=== PATIENT | male | born 1945 | race Caucasian/White ===

== ENCOUNTER 2016-12-26 19:31 | Inpatient (IN) | payer MEDICARE ==
[2016-12-26] MEDS ORDERED: PANTOPRAZOLE 40 MG/10 ML VIAL IVP STA (20:04)
[2016-12-26] MEDS ORDERED: OCTREOTIDE 100 MCG/ML INJ IVP STA (20:04)
[2016-12-26] MEDS ORDERED: OCTREOTIDE 200 MCG in SODIUM CHLORIDE 0.9% 100 ML IV STA (20:10)
[2016-12-26 20:33] LABS: Basophils # (A) 0.1 k/uL (0-0.2); Basophils % (A) 1 %; CH 34.9; CHCM 34.2; Eosinophils % (A) 0 %; HCT 33.3 % (39.0-53.0); HDW 1.97; HGB 11.5 gm/dL (13.0-17.5); Luc # (Auto) 0.29; Luc % (Auto) 3; Lymphocytes # (A) 0.7 k/uL (1.0-4.8); Lymphocytes % (A) 7 %; MCH 35.5 pg (25.0-35.0); MCHC 34.6 g/dL (31.0-37.0); MCV 102.5 fL (80.0-100.0); Macrocytosis Slight; Mean Platelet Volume 8.5; Monocytes % (A) 10 %; Neutrophils # (A) 7.9 k/uL (1.3-7.7); Neutrophils % (A) 80 %; RBC 3.25 m/uL (4.30-5.90); RDW 15.6 % (11.5-15.5); WBC 9.9 k/uL (3.8-10.6)
[2016-12-26 21:12] LABS: Manual Review Performed; Target Cells Present
[2016-12-26] MEDS ORDERED: MORPHINE SULFATE 4 MG/ML SYRINGE IV PRN (22:22)
[2016-12-26] MEDS ORDERED: NALOXONE 0.4 MG/ML 1 ML VIAL IV PRN (22:22)
[2016-12-26] MEDS ORDERED: ONDANSETRON 4 MG/2 ML VIAL IVP PRN (22:22)
--- NOTE | 2016-12-26 22:22 | ED ---
GI Bleed HPI - General Chief complaint: GI Bleed Stated complaint: GI Bleed Time Seen by Provider: 12/26/16 19:57 Source: EMS Mode of arrival: EMS Limitations: no limitations - History of Present Illness Initial comments: This 71-year-old white male presents with a complaint of some GI bleeding as well as some ascites and abdominal pain. He is being transferred to our facility from [facility]. He apparently states that he's had increasing abdominal girth and firmness as well as some discomfort. He had some right blood per rectum which started last night. He has generalized fatigue. He has chronic alcoholism and presents to their facility intoxicated. He states that he had one beer prior to arrival to their facility today. He complains of some nausea but no vomiting. He presents jaundiced with scleral icterus. He apparently was seen at their facility on 12/16/2016 related to some falls but refused any admission at that time. He does relate that he has a previous history of ascites but states that the last time he obtained a paracentesis was approximately 3 years ago. He has been seen by Dr. Powell in the past for some intestinal problems. He apparently had some type of tumor removed from his intestine and had a colostomy with reversal. He denies any other complaints or other modifying factors. - Related Data Home Medications Medication Instructions Recorded Confirmed Aspirin 325 mg PO DAILY 12/26/16 12/26/16 Multivitamins, Thera [Multivitamin 1 tab PO DAILY 12/26/16 12/26/16 (formulary)] Previous Rx's Medication Instructions Recorded Potassium Chloride ER [K-Dur 20] 20 meq PO BID #120 tab.er.prt 12/28/14 Allergies Allergy/AdvReac Type Severity Reaction Status Date / Time No Known Allergies Allergy Verified 12/26/16 20:50 Review of Systems ROS Statement: Those systems with pertinent positive or pertinent negative responses have been documented in the HPI. ROS Other: All systems not noted in ROS Statement are negative. Past Medical History Past Medical History: Cancer, Liver Disease Additional Past Medical History / Comment(s): HX SKIN CA ON NOSE, CURRENT RECTAL MASS, CIRRHOSIS, JAUNDICE, ESOPHAGEAL VARICIES, ASCITES History of Any Multi-Drug Resistant Organisms: None Reported Past Surgical History: No Surgical Hx Reported Additional Past Surgical History / Comment(s): PARACENTESIS, COLONOSCOPY, EGD Past Anesthesia/Blood Transfusion Reactions: No Reported Reaction Past Psychological History: Anxiety Smoking Status: Former smoker Past Alcohol Use History: Heavy Past Drug Use History: None Reported - Past Family History Father Family Medical History: Myocardial Infarction ([place]) Mother Family Medical History: Diabetes Mellitus Brother(s) Family Medical History: Liver Disease Additional Family Medical History / Comment(s): CIRROSIS General Exam - General Exam Comments Initial Comments: GENERAL: The patient is well nourished and well hydrated. VITAL SIGNS: Heart rate, blood pressure, respiratory rate reviewed as recorded in nurse's notes. EYES: Pupils are round and reactive. Extraocular movements are intact. No conjunctival / lid redness or swelling. Icterus is noted. ENT: No external evidence of injury, swelling, or ecchymosis. Airway is patent. Throat is clear. NECK: Nontender. No swelling or evidence of injury. No subcutaneous emphysema. Trachea is midline. No thyroid mass. HEART: Tachycardic rhythm is noted. Good peripheral pulses. LUNGS/CHEST: Breath sounds clear and equal bilaterally. No rales, rhonchi, or wheezes. No ecchymosis, subcutaneous emphysema, or tenderness. ABDOMEN: There is severe swelling of the abdomen with mild diffuse tenderness. EXTREMITIES: No extremity tenderness. Normal muscle tone and function. No thoracolumbar tenderness. NEUROLOGIC: Sensation is grossly intact. Cranial nerve exam reveals face is symmetrical, tongue is midline, speech is clear. SKIN: There is some spider hemangiomas noted to the chest region. Jaundice is noted. PSYCHIATRIC: Alert and oriented. Appropriate behavior and judgment. Limitations: no limitations Course Vital Signs 12/26/16 12/26/16 12/26/16 19:34 20:27 20:39 Temperature 97.5 F L 98.5 F Pulse Rate 109 H 103 H Respiratory 17 18 Rate Blood Pressure 132/77 117/77 O2 Sat by Pulse 95 94 L Oximetry 12/26/16 21:00 Temperature 98.5 F Pulse Rate 101 H Respiratory 18 Rate Blood Pressure 123/71 O2 Sat by Pulse 97 Oximetry Medical Decision Making - Medical Decision Making The patient was seen and examined. All diagnostics were reviewed. The patient had a thorough workup at the preceding facility. His laboratory showed multiple abnormalities. The alcohol is elevated at 342, the chloride is low at 95, the alk phos is elevated at 179, the transaminases are elevated, the bilirubin is severely elevated at 18.3, the lactic acid is elevated at 2.4, the hemoglobin is low at 11.9 which is only down approximately one and a half grams since previous hemoglobin last week per transferring records. The PT is elevated at 17.4. The occult blood is positive. The INR was elevated at 2. The hemoglobin is repeated and is stable. EKG from other transferring facility shows a sinus tachycardia at a rate of [address]-T wave changes noted. They completed a computed tomography scan of the abdomen and pelvis at the transferring facility which apparently showed as extreme amount of liver cirrhosis, portal hypertension and esophageal varices. There is significant amount of ascites. There is a possible apple core defect or mass in the mid transverse colon which measures approximately 4 cm. There is a questionable lesion in the small bowel and lumbar and a large gallbladder. There is a questionable lytic lesions versus and osteopenia in the pelvis. The chest x- ray was done at the transferring facility and does not show any acute process. Overall, is felt that the patient is fairly significant illness require admission to the hospital. Case is discussed with Dr. Castillo and he is agreeable to admission. - Lab Data Result diagrams: 12/26/16 20:14 Lab Results 12/26/16 Range/Units 20:14 WBC 9.9 (3.8-10.6) k/uL RBC 3.25 L (4.30-5.90) m/uL Hgb 11.5 L (13.0-17.5) gm/dL Hct 33.3 L (39.0-53.0) % MCV 102.5 H (80.0-100.0) fL MCH 35.5 H (25.0-35.0) pg MCHC 34.6 (31.0-37.0) g/dL RDW 15.6 H (11.5-15.5) % Plt Count 93 L (150-450) k/uL Neutrophils % 80 % Lymphocytes % 7 % Monocytes % 10 % Eosinophils % 0 % Basophils % 1 % Neutrophils # 7.9 H (1.3-7.7) k/uL Lymphocytes # 0.7 L (1.0-4.8) k/uL Monocytes # 1.0 (0-1.0) k/uL Eosinophils # 0.0 (0-0.7) k/uL Basophils # 0.1 (0-0.2) k/uL Manual Slide Review Performed Macrocytosis Slight Target Cells Present Disposition Clinical Impression: GI bleed, Anemia, Alcohol abuse, Alcohol intoxication, Ascites, Coagulopathy, Transaminitis, Jaundice, Icterus, Hepatic failure, Cirrhosis, Colonic mass, Portal hypertension, Esophageal varices Disposition: ADMITTED IP TO THIS [facility] Condition: Poor Referrals: None,Stated [Primary Care Provider] - 1-2 days Time of Disposition: 22:21 Decision Date: 12/26/16 Decision Time: 22:21
[2016-12-26] MEDS ORDERED: LORazepam 2 MG/ML SYRINGE IV PRN ×2 (22:28)
[2016-12-26] MEDS ORDERED: THIAMINE 100 MG/ML 2 ML VIAL IM STA (22:28)
[2016-12-26] MEDS: FUROSEMIDE 10 MG/ML 4 ML VIAL IV SCH (23:06)
[2016-12-26 23:24] LABS: Glucose,Whole Blood 66 mg/dL (75-99)
[2016-12-26] MEDS: THIAMINE 100 MG TAB PO SCH (23:37)
[2016-12-26 23:40] LABS: Glucose,Whole Blood 73 mg/dL (75-99)
[2016-12-27] MEDS ORDERED: PHYTONADIONE ORAL 5 MG/5 ML ORAL.SYRG PO STA (00:16)
[2016-12-27 00:57] LABS: Appearance,Urine Clear (Clear); Bilirubin,Urine 1+ (Negative); Glucose,Urine (UA) Negative (Negative); Ketones,Urine Negative (Negative); Leukocyte Esterase,Urine Negative (Negative); Nitrite,Urine Negative (Negative); PH, Urine 5.5 (5.0-8.0); Protein,Urine Negative (Negative); Specific Gravity,Urine 1.011 (1.001-1.035); UA Billing (MACRO vs. MICRO) CHEM
[2016-12-27 04:49] LABS: INR 1.8 (<1.1); Prothrombin Time 17.8 sec (9.0-12.0)
[2016-12-27 04:50] LABS: Basophils % (A) 0 %; CHCM 33.5; Eosinophils % (A) 0 %; HCT 32.4 % (39.0-53.0); HDW 1.98; HGB 10.8 gm/dL (13.0-17.5); Luc # (Auto) 0.28; Luc % (Auto) 3; Lymphocytes # (A) 0.5 k/uL (1.0-4.8); Lymphocytes % (A) 5 %; MCHC 33.3 g/dL (31.0-37.0); MCV 104.8 fL (80.0-100.0); Macrocytosis Moderate; Monocytes # (A) 1.1 k/uL (0-1.0); Monocytes % (A) 11 %; Neutrophils # (A) 7.8 k/uL (1.3-7.7); Neutrophils % (A) 81 %; RBC 3.09 m/uL (4.30-5.90); RDW 15.7 % (11.5-15.5); WBC 9.7 k/uL (3.8-10.6)
[2016-12-27 04:58] LABS: ALT 61 U/L (21-72); AST 162 U/L (17-59); Alkaline Phosphatase 202 U/L (38-126); Anion Gap 14 mmol/L; Blood Urea Nitrogen 8 mg/dL (9-20); Calcium 7.4 mg/dL (8.4-10.2); Carbon Dioxide 24 mmol/L (22-30); Chloride 97 mmol/L (98-107); Glucose 110 mg/dL (74-99); Non-African American GFR(MDRD) >60 (>60 ml/min/1.73 sqM); Potassium 4.3 mmol/L (3.5-5.1); Sodium 135 mmol/L (137-145); Total Protein 6.5 g/dL (6.3-8.2)
[2016-12-27 05:07] LABS: Total Bilirubin 16.4 mg/dL (0.2-1.3)
[2016-12-27 07:49] VITALS: BMI 23.3
[2016-12-27] MEDS ORDERED: PHYTONADIONE ORAL 5 MG/5 ML ORAL.SYRG PO ONE (09:00)
--- NOTE | 2016-12-27 10:50 | US ---
Therapeutic and diagnostic paracentesis. DATE OF EXAM: 12/27/2016 CLINICAL HISTORY: Ascites The procedure was discussed with the patient. The risks, complications, benefits, and alternatives we re discussed and any questions were answered. Informed consent was obtained. The patient was placed s upine on the ultrasound table and prepped and draped in the usual sterile fashion. All elements of maximal barrier technique were utilized. Under ultrasound guidance, access into the right lower quadrant was obtained, via the paracentesis catheter system and direct ultrasound guidanc e. Approximately 6 liters of straw-colored fluid was removed. The patient was stable throughout the proc edure and remained stable upon discharge from Department of Radiology. Sample sent to pathology for a nalysis. IMPRESSION: Successful paracentesis under ultrasound guidance.
[2016-12-27] MEDS ORDERED: ALBUMIN HUMAN 25% 50 ML in EMPTY BAG 1 BAG IVPB ONE (11:09)
[2016-12-27] MEDS: MULTIVITAMINS, THERA 1 EACH TAB PO SCH (11:14)
[2016-12-27] MEDS: POTASSIUM CHLORIDE ER 20 MEQ TAB.ER PO SCH ×2 (11:14→21:48)
[2016-12-27] MEDS: SPIRONOLACTONE 25 MG TAB PO SCH (11:15)
[2016-12-27] MEDS: FUROSEMIDE 10 MG/ML 4 ML VIAL IV SCH ×2 (11:15→21:49)
[2016-12-27] MEDS: THIAMINE 100 MG TAB PO SCH ×2 (11:16→16:17)
--- NOTE | 2016-12-27 13:45 | P.GSCN ---
History of Present Illness Consult date: 12/27/16 Reason for Consult: Attending History of present illness: 71-year-old who was transferred from [facility] to [facility] for higher level care in a patient who was experiencing increased abdominal girth with abdominal discomfort with an episode of bright red blood per rectum the night before. Patient initially had presented to [facility] with the above-mentioned symptoms. Patient does have history of chronic alcoholism. When patient was at the [facility] he was noted to be intoxicated. Patient stated he drank a beer before coming to [facility]. Patient reportedly was experiencing some nausea but there were no active vomiting. Patient is jaundiced on presentation. Patient is a poor historian. Patient gives a history of having seen Dr. Dr. Jamar Gray in the past 2014 after reviewing computerized record. Patient was seen by Dr. Jamar Gray had a colostomy reversal done some type tumor removed from his intestines Not able to adequately provide health information. 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 Patient's family indicated that the patient in May 2016 had a reversal of the sigmoid colostomy at [facility] The attending has requested a surgical eval for abdominal pain possible abdominal mass. According to the patient last time he had fluid drained from his abdomen to treat his ascites was greater than 3 years ago. Patient states he drinks alcohol on a daily basis. Patient had significant ascites on admission. Patient did undergo a successful paracentesis ultrasound-guided with 6 L of straw-colored fluid removed done on December 27 by interventional radiology Review of Systems Not able to adequately obtain poor recall Past Medical History Past Medical History: Cancer, GI Bleed, Liver Disease Additional Past Medical History / Comment(s): HX SKIN CA ON NOSE, CURRENT RECTAL MASS, CIRRHOSIS, JAUNDICE, ESOPHAGEAL VARICIES, ASCITES History of Any Multi-Drug Resistant Organisms: None Reported Past Surgical History: No Surgical Hx Reported, Bowel Resection Additional Past Surgical History / Comment(s): PARACENTESIS, COLONOSCOPY, EGD Past Anesthesia/Blood Transfusion Reactions: No Reported Reaction Past Psychological History: Anxiety Additional Psychological History / Comment(s): DAUGHTER IN LAW STATES "MAY HAVE "WET BRAIN" R/T ALCHOHOLISM" "LIKE DEMENTIA" Smoking Status: Former smoker Past Alcohol Use History: Abuse Additional Past Alcohol Use History / Comment(s): Drinks heavily per daughter in law Past Drug Use History: None Reported - Past Family History Father History Unknown: Yes Family Medical History: Myocardial Infarction ([place]) Mother History Unknown: Yes Family Medical History: Diabetes Mellitus Brother(s) History Unknown: Yes Family Medical History: Liver Disease Additional Family Medical History / Comment(s): CIRROSIS Medications and Allergies Home Medications Medication Instructions Recorded Confirmed Type Aspirin 325 mg PO DAILY 12/26/16 12/26/16 History Multivitamins, Thera [Multivitamin 1 tab PO DAILY 12/26/16 12/26/16 History (formulary)] Allergies Allergy/AdvReac Type Severity Reaction Status Date / Time No Known Allergies Allergy Verified 12/26/16 20:50 Surgical - Exam Vital Signs Temp Pulse Resp BP Pulse Ox 97.5 F L 109 H 17 132/77 95 12/26/16 19:34 12/26/16 19:34 12/26/16 19:34 12/26/16 19:34 12/26/16 19:34 GENERAL APPEARANCE: 71-year-old male jaundice patient is alert, oriented, in no acute distress. VITAL SIGNS: HEENT: Head is normocephalic and atraumatic. Pupils are equal and reactive. The nares are patent. Oropharynx is clear without lesions. NECK: Supple without lymphadenopathy. Traches midline. HEART: S1, S2. Regular rate and rhythm. LUNGS: No crackles or wheezes are heard. ABDOMEN: Severe swelling of the abdominal wall with diffuse tenderness across the abdominal wall EXTREMITIES: Normal skin color and turgor. No cyanosis, rash, ulceration, clubbing or edema. Radial pedal pulses are 2/4 bilaterally. NEUROLOGICAL: No focal deficits. Strength and sensation are grossly intact. Skin There is some spider hemangiomas noted to the chest region. Jaundice is noted. PSYCHIATRIC: Alert and oriented. Appropriate behavior and judgment. Results - Labs 12/27/16 04:21 12/27/16 04:21 Abnormal Lab Results - Last 24 Hours (Table) 12/26/16 12/26/16 12/26/16 Range/Units 20:14 23:22 23:39 RBC 3.25 L (4.30-5.90) m/uL Hgb 11.5 L (13.0-17.5) gm/dL Hct 33.3 L (39.0-53.0) % MCV 102.5 H (80.0-100.0) fL MCH 35.5 H (25.0-35.0) pg RDW 15.6 H (11.5-15.5) % Plt Count 93 L (150-450) k/uL Neutrophils # 7.9 H (1.3-7.7) k/uL Lymphocytes # 0.7 L (1.0-4.8) k/uL Monocytes # (0-1.0) k/uL PT (9.0-12.0) sec Sodium (137-145) mmol/L Chloride (98-107) mmol/L BUN (9-20) mg/dL Glucose (74-99) mg/dL POC Glucose (mg/dL) 66 L 73 L (75-99) mg/dL Calcium (8.4-10.2) mg/dL Total Bilirubin (0.2-1.3) mg/dL AST (17-59) U/L Alkaline Phosphatase (38-126) U/L Albumin (3.5-5.0) g/dL Urine Bilirubin (Negative) 12/27/16 12/27/16 12/27/16 Range/Units 00:50 04:21 04:21 RBC 3.09 L (4.30-5.90) m/uL Hgb 10.8 L (13.0-17.5) gm/dL Hct 32.4 L (39.0-53.0) % MCV 104.8 H (80.0-100.0) fL MCH (25.0-35.0) pg RDW 15.7 H (11.5-15.5) % Plt Count 88 L (150-450) k/uL Neutrophils # 7.8 H (1.3-7.7) k/uL Lymphocytes # 0.5 L (1.0-4.8) k/uL Monocytes # 1.1 H (0-1.0) k/uL PT 17.8 H (9.0-12.0) sec Sodium (137-145) mmol/L Chloride (98-107) mmol/L BUN (9-20) mg/dL Glucose (74-99) mg/dL POC Glucose (mg/dL) (75-99) mg/dL Calcium (8.4-10.2) mg/dL Total Bilirubin (0.2-1.3) mg/dL AST (17-59) U/L Alkaline Phosphatase (38-126) U/L Albumin (3.5-5.0) g/dL Urine Bilirubin 1+ H (Negative) 12/27/16 Range/Units 04:21 RBC (4.30-5.90) m/uL Hgb (13.0-17.5) gm/dL Hct (39.0-53.0) % MCV (80.0-100.0) fL MCH (25.0-35.0) pg RDW (11.5-15.5) % Plt Count (150-450) k/uL Neutrophils # (1.3-7.7) k/uL Lymphocytes # (1.0-4.8) k/uL Monocytes # (0-1.0) k/uL PT (9.0-12.0) sec Sodium 135 L (137-145) mmol/L Chloride 97 L (98-107) mmol/L BUN 8 L (9-20) mg/dL Glucose 110 H (74-99) mg/dL POC Glucose (mg/dL) (75-99) mg/dL Calcium 7.4 L (8.4-10.2) mg/dL Total Bilirubin 16.4 H* (0.2-1.3) mg/dL AST 162 H (17-59) U/L Alkaline Phosphatase 202 H (38-126) U/L Albumin 2.6 L (3.5-5.0) g/dL Urine Bilirubin (Negative) Diabetes panel 12/27/16 Range/Units 04:21 Sodium 135 L (137-145) mmol/L Potassium 4.3 (3.5-5.1) mmol/L Chloride 97 L (98-107) mmol/L Carbon Dioxide 24 (22-30) mmol/L BUN 8 L (9-20) mg/dL Creatinine 0.70 (0.66-1.25) mg/dL Glucose 110 H (74-99) mg/dL Calcium 7.4 L (8.4-10.2) mg/dL AST 162 H (17-59) U/L ALT 61 (21-72) U/L Alkaline Phosphatase 202 H (38-126) U/L Total Protein 6.5 (6.3-8.2) g/dL Albumin 2.6 L (3.5-5.0) g/dL Calcium panel 12/27/16 Range/Units 04:21 Calcium 7.4 L (8.4-10.2) mg/dL Albumin 2.6 L (3.5-5.0) g/dL Pituitary panel 12/27/16 Range/Units 04:21 Sodium 135 L (137-145) mmol/L Potassium 4.3 (3.5-5.1) mmol/L Chloride 97 L (98-107) mmol/L Carbon Dioxide 24 (22-30) mmol/L BUN 8 L (9-20) mg/dL Creatinine 0.70 (0.66-1.25) mg/dL Glucose 110 H (74-99) mg/dL Calcium 7.4 L (8.4-10.2) mg/dL Adrenal panel 12/27/16 Range/Units 04:21 Sodium 135 L (137-145) mmol/L Potassium 4.3 (3.5-5.1) mmol/L Chloride 97 L (98-107) mmol/L Carbon Dioxide 24 (22-30) mmol/L BUN 8 L (9-20) mg/dL Creatinine 0.70 (0.66-1.25) mg/dL Glucose 110 H (74-99) mg/dL Calcium 7.4 L (8.4-10.2) mg/dL Total Bilirubin 16.4 H* (0.2-1.3) mg/dL AST 162 H (17-59) U/L ALT 61 (21-72) U/L Alkaline Phosphatase 202 H (38-126) U/L Total Protein 6.5 (6.3-8.2) g/dL Albumin 2.6 L (3.5-5.0) g/dL Assessment and Plan Plan: Impression Chronic alcoholism daily consumption CAT scan obtained at [place] per ER records indicate apple core defect or mass in the mid transverse colon measures approximately 4 cm Coagulopathy present on admission suspect due to chronic alcoholism Thrombocytopenia suspect alcohol-induced Present on admission elevated liver enzymes suspect due to chronic alcoholism CAT scan abdomen and pelvis at the [facility] shows extremely monitor liver cirrhosis portal hypertension and esophageal varices suspect due to chronic alcoholism Present on admission acute alcohol intoxication with alcohol level 342 Hepatic failure History of 12/20/2014 exploratory laparotomy, low anterior resection with Mcclellan's procedure, sigmoid colostomy, repair of umbilical hernia for rectal tumor high-grade dysphagia Plan No acute surgical intervention warranted at this time conservative treatment recommended Continue medical management Consider CIWA protocol for impending DTs Resume home meds as appropriate Consider manager social media family and patient interested in information for EtOH abuse We'll see patient on an as-needed basis Thank you for allowing us to participate in the surgical management of your patient. The above impression and plan of care have been discussed and directed by signing physician. Melissa Marie nurse practitioner acting as scribe for signing physician.
[2016-12-27] MEDS: PANTOPRAZOLE 40 MG/10 ML VIAL IV SCH (14:01)
[2016-12-27 15:22] LABS: RBC, Body Fluid 432 /uL
[2016-12-27 19:35] LABS: Glucose, BF Source Peritoneal Fluid; LDH, Body Fluid Source Peritoneal Fluid; T. Protein, Body Fluid Source Peritoneal Fluid; Total Protein, Body Fluid 594 mg/dL
[2016-12-28] MEDS: LORazepam 2 MG/ML SYRINGE IV PRN ×2 (01:13→22:32)
--- NOTE | 2016-12-28 07:41 | XR ---
EXAMINATION TYPE: XR chest 1V portable DATE OF EXAM: 12/28/2016 Comparison: 12/28/2014 Clinical History: 71-year-old male with CHF, ascites, hepatic failure Findings: Heart is normal size. Some strandy atelectasis at the left base. Aorta and pulmonary vasculature with in normal limits. There is thickening of the minor fissure with volume loss and hazy density at the r ight base. Also, suspect focal eventration of the right hemidiaphragm. Impression: Suspect small right pleural effusion with adjacent atelectasis and/or consolidation.
[2016-12-28 07:56] LABS: Basophils % (A) 0 %; CH 34.1; Eosinophils # (A) 0.1 k/uL (0-0.7); Eosinophils % (A) 1 %; HCT 31.6 % (39.0-53.0); HDW 1.96; HGB 10.8 gm/dL (13.0-17.5); Luc # (Auto) 0.34; Luc % (Auto) 3; Lymphocytes # (A) 0.7 k/uL (1.0-4.8); Lymphocytes % (A) 8 %; MCH 35.4 pg (25.0-35.0); MCV 103.9 fL (80.0-100.0); Macrocytosis Moderate; Mean Platelet Volume 7.7; Monocytes # (A) 0.9 k/uL (0-1.0); Monocytes % (A) 9 %; Neutrophils # (A) 7.8 k/uL (1.3-7.7); Neutrophils % (A) 79 %; RBC 3.04 m/uL (4.30-5.90); RDW 15.2 % (11.5-15.5); WBC 9.8 k/uL (3.8-10.6)
[2016-12-28 07:59] LABS: INR 2.1 (<1.1); Prothrombin Time 20.2 sec (9.0-12.0)
[2016-12-28] MEDS: PANTOPRAZOLE 40 MG/10 ML VIAL IV SCH (08:33)
[2016-12-28] MEDS: SPIRONOLACTONE 25 MG TAB PO SCH (08:34)
[2016-12-28] MEDS: POTASSIUM CHLORIDE ER 20 MEQ TAB.ER PO SCH ×2 (08:34→19:44)
[2016-12-28] MEDS: MULTIVITAMINS, THERA 1 EACH TAB PO SCH (08:34)
[2016-12-28] MEDS: FUROSEMIDE 10 MG/ML 4 ML VIAL IV SCH ×2 (08:34→19:45)
[2016-12-28 11:22] LABS: ALT 47 U/L (21-72); AST 156 U/L (17-59); Alkaline Phosphatase 186 U/L (38-126); Anion Gap 10 mmol/L; Blood Urea Nitrogen 11 mg/dL (9-20); Calcium 7.4 mg/dL (8.4-10.2); Carbon Dioxide 28 mmol/L (22-30); Chloride 96 mmol/L (98-107); Glucose 99 mg/dL (74-99); Non-African American GFR(MDRD) >60 (>60 ml/min/1.73 sqM); Potassium 3.4 mmol/L (3.5-5.1); Sodium 134 mmol/L (137-145)
[2016-12-28 11:33] LABS: Total Bilirubin 19.3 mg/dL (0.2-1.3); Total Protein 6.6 g/dL (6.3-8.2)
--- NOTE | 2016-12-28 12:29 | HP ---
Chief complaints are GI bleed, abdominal discomfort and pain and distention. HISTORY OF PRESENT ILLNESS: This 71-year-old gentleman with a past medical history of multiple medical problems including liver disease, history of cirrhosis of the liver, history of esophageal varices, being followed by Dr. Miller Echavarria in [place] presented to [facility] with abdominal pain and some GI bleed. The patient also had some abdominal distention also. CAT scan showed multiple abnormalities including possibly in the transverse colon and the patient was transferred to [facility] and admitted for further evaluation and treatment. There is no history of fever or rigors. No history of headache, loss of consciousness or seizure. Alcohol level was elevated at 340 at [facility]. PAST MEDICAL HISTORY: History of liver disease, history of EtOH, history of anxiety. MEDICATIONS PRIOR TO ADMISSION: 1. K-Dur 20 mEq p.o. b.i.d. 2. Multivitamins 1 p.o. daily. 3. Aspirin 325 mg p.o. daily. Allergies are none. FAMILY HISTORY: History of myocardial infarction, cirrhosis. SOCIAL HISTORY: History of alcohol. Previous history of smoking. REVIEW OF SYSTEM: ENT: No diminished hearing or diminished vision. CARDIOVASCULAR. As mentioned earlier. RESPIRATORY: As mentioned earlier. GI: As mentioned earlier. : No dysuria or hematuria. NERVOUS SYSTEM: No numbness or weakness. ALLERGY/IMMUNOLOGY: No asthma or hayfever. MUSCULOSKELETAL: As mentioned earlier. HEMATOLOGY/ONCOLOGY: No history of anemia. ENDOCRINE: No history of diabetes mellitus or hypothyroidism. CONSTITUTIONAL: As mentioned earlier . DERMATOLOGY: Negative. RHEUMATOLOGY: Negative. PSYCHIATRY: As mentioned earlier. PHYSICAL EXAM: The patient is alert and oriented x3. Pulse is 103, blood pressure is 124/69, respirations 20, temperature 98.5, pulse ox 93% on 2 L. HEENT: Conjunctivae is icteric. Oral mucosa moist. NECK: No jugular venous distention. No carotid bruit. No lymph node enlargement. CARDIOVASCULAR: S1 and S2, muffled. No S3, no S4. RESPIRATORY: Breath sounds diminished at the bases. A few scattered rhonchi and crackles. ABDOMEN: Tense, distended. Ascites present. also present, nontender. No mass palpable. Bowel sounds diminished. Status post healed surgery. EXAMINATION OF THE LEGS: Bilateral leg swelling present. NERVOUS SYSTEM: Higher function as mentioned earlier. Moves all 4 limbs. Mild diffuse weakness. LYMPHATICS: No lymphadenopathy of the neck, axillae or groin. SKIN; No ulcers, rashes or bleeding. LABS: WBC 9.9, hemoglobin 11.5, MCV 102.5. ASSESSMENT: 1. Cirrhosis of the liver with tense ascites and abdominal distention. 2. Rule out lesion and colonic malignancy. 3. Alcohol cirrhosis of the liver. 4. History of EtOH and alcohol intoxication. 5. Possible alcoholic hepatitis. 6. Coagulopathy secondary to cirrhosis of the liver. 7. Portal hypertension. 8. Esophageal varices. 9. Rule out lesions. 10. Mild to moderate protein calorie malnutrition. 11. Anemia, macrocytic secondary to cirrhosis of the liver. 12. Thrombocytopenia secondary to cirrhosis of the liver. 13. FULL CODE. RECOMMENDATIONS AND DISCUSSION: This 71-year-old gentleman presented with multiple complex medical issues. Will monitor the patient closely. Continue the current medications. Continue symptomatic treatment. Otherwise surgical and gastroenterology evaluation. Possible endoscopies, ascitic fluid tap with ( ) vitamin K. Symptomatic treatment. CIWA protocol. Alcohol withdrawal protocol. Guarded prognosis. Further recommendations to follow. See orders for details. MTDD
[2016-12-28] MEDS: THIAMINE 100 MG TAB PO SCH ×2 (12:31→17:34)
--- NOTE | 2016-12-28 13:11 | P.CONS ---
History of Present Illness - Reason for Consult Consult date: 12/27/16 - History of Present Illness The patient is a 71-year-old male who was transferred from [facility] to [facility] for higher level care. Patient initially had presented to [facility] with abdominal pain, increase in abdominal girth and rectal bleeding. Patient does have history of chronic alcoholism. When patient was at the [facility] he was noted to be intoxicated. Patient reportedly was experiencing some nausea but there were no active vomiting. Patient is jaundiced on presentation. 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 Family indicated that the patient had the revision in May 2016 at [facility]. According to the patient last time he had fluid drained from his abdomen to treat his ascites was greater than 3 years ago. Patient states he drinks alcohol on a daily basis. Patient had significant ascites on admission. Patient did undergo already a successful paracentesis with 6 L of straw-colored fluid removed by interventional radiology ultrasound guided. Review of Systems REVIEW OF SYSTEMS: CARDIOPULMONARY: No chest pain or shortness of breath. GENITOURINARY: No dysuria or hematuria. MUSCULOSKELETAL: Unremarkable. SKIN: Unremarkable. ENDOCRINE: Unremarkable. PSYCHIATRIC: Unremarkable. NEUROLOGY: Unremarkable. ENT: Vision unremarkable. CONSTITUTIONAL: No recent weight loss. No fever, chills, night sweats. Past Medical History Past Medical History: Cancer, GI Bleed, Liver Disease Additional Past Medical History / Comment(s): HX SKIN CA ON NOSE, CURRENT RECTAL MASS, CIRRHOSIS, JAUNDICE, ESOPHAGEAL VARICIES, ASCITES History of Any Multi-Drug Resistant Organisms: None Reported Past Surgical History: No Surgical Hx Reported, Bowel Resection Additional Past Surgical History / Comment(s): PARACENTESIS, COLONOSCOPY, EGD Past Anesthesia/Blood Transfusion Reactions: No Reported Reaction Past Psychological History: Anxiety Additional Psychological History / Comment(s): DAUGHTER IN LAW STATES "MAY HAVE "WET BRAIN" R/T ALCHOHOLISM" "LIKE DEMENTIA" Smoking Status: Former smoker Past Alcohol Use History: Abuse Additional Past Alcohol Use History / Comment(s): Drinks heavily per daughter in law Past Drug Use History: None Reported - Past Family History Father History Unknown: Yes Family Medical History: Myocardial Infarction (DE) Mother History Unknown: Yes Family Medical History: Diabetes Mellitus Brother(s) History Unknown: Yes Family Medical History: Liver Disease Additional Family Medical History / Comment(s): CIRROSIS Medications and Allergies Home Medications Medication Instructions Recorded Confirmed Type Aspirin 325 mg PO DAILY 12/26/16 12/26/16 History Multivitamins, Thera [Multivitamin 1 tab PO DAILY 12/26/16 12/26/16 History (formulary)] Allergies Allergy/AdvReac Type Severity Reaction Status Date / Time No Known Allergies Allergy Verified 12/26/16 20:50 Physical Exam Vitals: Vital Signs Temp Pulse Pulse Resp BP BP Pulse Ox 12/27/16 21:00 121/57 12/27/16 16:00 103 H 18 12/27/16 15:00 98.8 F 103 H 18 120/64 93 L 12/27/16 13:36 98.3 F 98 18 127/70 97 12/27/16 11:12 76 14 120/70 100 12/27/16 10:32 97 14 137/69 97 12/27/16 10:07 94 14 134/75 98 12/27/16 09:50 96 14 134/77 96 12/27/16 09:25 103 H 14 131/78 96 12/27/16 08:00 98.4 F 96 25 H 98/56 93 L 12/27/16 04:00 98.9 F 112 H 27 H 101/63 91 L 12/27/16 00:00 98.9 F 104 H 22 124/69 93 L 12/26/16 23:30 103 H 20 124/69 94 L Intake and Output 12/27/16 12/27/16 12/28/16 14:59 22:59 06:59 Output Total 6000 400 Balance -6000 -400 Output: Urine 400 Other 6000 Other: Voiding Method Urinal Urinal # Voids 0 1 Weight 73.7 kg 73.7 kg Patient Weight 12/28/16 06:59 Weight 73.7 kg On physical examination, patient appears comfortable in no apparent distress. Vital signs are stable. HEENT: Unremarkable. Conjunctivae pink. Sclerae icteric. Oral cavity no lesions. NECK: No JVD or lymph node enlargement. CHEST: Clear to auscultation. HEART: Regular rate and rhythm. ABDOMEN: Soft. Bowel sounds are positive. No organomegaly. Shifting dullness EXTREMITIES: No pedal edema. SKIN: No rashes. NEUROLOGIC: Alert and oriented x3. No focal deficits. No flapping tremor. Results CBC & Chem 7: 12/28/16 07:29 12/28/16 07:29 Labs: Abnormal Lab Results - Last 24 Hours (Table) 12/26/16 12/26/16 12/27/16 Range/Units 23:22 23:39 00:50 RBC (4.30-5.90) m/uL Hgb (13.0-17.5) gm/dL Hct (39.0-53.0) % MCV (80.0-100.0) fL RDW (11.5-15.5) % Plt Count (150-450) k/uL Neutrophils # (1.3-7.7) k/uL Lymphocytes # (1.0-4.8) k/uL Monocytes # (0-1.0) k/uL PT (9.0-12.0) sec Sodium (137-145) mmol/L Chloride (98-107) mmol/L BUN (9-20) mg/dL Glucose (74-99) mg/dL POC Glucose (mg/dL) 66 L 73 L (75-99) mg/dL Calcium (8.4-10.2) mg/dL Total Bilirubin (0.2-1.3) mg/dL AST (17-59) U/L Alkaline Phosphatase (38-126) U/L Ammonia (<30) umol/L Albumin (3.5-5.0) g/dL Urine Bilirubin 1+ H (Negative) 12/27/16 12/27/16 12/27/16 Range/Units 04:21 04:21 04:21 RBC 3.09 L (4.30-5.90) m/uL Hgb 10.8 L (13.0-17.5) gm/dL Hct 32.4 L (39.0-53.0) % MCV 104.8 H (80.0-100.0) fL RDW 15.7 H (11.5-15.5) % Plt Count 88 L (150-450) k/uL Neutrophils # 7.8 H (1.3-7.7) k/uL Lymphocytes # 0.5 L (1.0-4.8) k/uL Monocytes # 1.1 H (0-1.0) k/uL PT 17.8 H (9.0-12.0) sec Sodium 135 L (137-145) mmol/L Chloride 97 L (98-107) mmol/L BUN 8 L (9-20) mg/dL Glucose 110 H (74-99) mg/dL POC Glucose (mg/dL) (75-99) mg/dL Calcium 7.4 L (8.4-10.2) mg/dL Total Bilirubin 16.4 H* (0.2-1.3) mg/dL AST 162 H (17-59) U/L Alkaline Phosphatase 202 H (38-126) U/L Ammonia (<30) umol/L Albumin 2.6 L (3.5-5.0) g/dL Urine Bilirubin (Negative) 12/27/16 Range/Units 15:30 RBC (4.30-5.90) m/uL Hgb (13.0-17.5) gm/dL Hct (39.0-53.0) % MCV (80.0-100.0) fL RDW (11.5-15.5) % Plt Count (150-450) k/uL Neutrophils # (1.3-7.7) k/uL Lymphocytes # (1.0-4.8) k/uL Monocytes # (0-1.0) k/uL PT (9.0-12.0) sec Sodium (137-145) mmol/L Chloride (98-107) mmol/L BUN (9-20) mg/dL Glucose (74-99) mg/dL POC Glucose (mg/dL) (75-99) mg/dL Calcium (8.4-10.2) mg/dL Total Bilirubin (0.2-1.3) mg/dL AST (17-59) U/L Alkaline Phosphatase (38-126) U/L Ammonia 95 H (<30) umol/L Albumin (3.5-5.0) g/dL Urine Bilirubin (Negative) Microbiology - Last 24 Hours (Table) 12/27/16 09:35 Body Fluid Culture - Preliminary Peritoneal Fluid 12/27/16 09:35 Anaerobic Culture - Preliminary Peritoneal Fluid Assessment and Plan Plan: 7i-year old male with alcoholic hepatitis superimposed on chronic alcoholic liver disease with ascites and encephalopathy. Agree with current management and monitoring for alcohol withdrawal and other complications. Will follow with you with interest.
--- NOTE | 2016-12-28 15:11 | P.PN ---
Progress Note - Text Objective patient is feeling better after having 6 L removed. She is not complaining of any pain or discomfort at this time. Objective T 100.7 but otherwise stable . Abdomen is mildly distended but soft Assessment and plan patient is advanced liver disease, no surgical intervention is planned at this time okay to discharge her primary care team's surgery will sign off thank you for the consult
[2016-12-28] MEDS: LACTULOSE 20 GM/30 ML CUP PO SCH (19:45)
[2016-12-28 20:15] LABS: Appearance,Urine Cloudy (Clear); Bacteria,Urine Few /hpf; Bilirubin,Urine 4+ (Negative); Glucose,Urine (UA) Negative (Negative); Ketones,Urine Negative (Negative); Leukocyte Esterase,Urine Trace (Negative); Mucus,Urine Occasional /hpf; Nitrite,Urine Negative (Negative); PH, Urine 6.5 (5.0-8.0); Particle Count 7733; Protein,Urine Negative (Negative); RBC,Urine <1 /hpf (0-5); Specific Gravity,Urine 1.013 (1.001-1.035); Squamous Epithelial Cell,Urine <1 /hpf (0-4); UA Billing (MACRO vs. MICRO) MICRO; Urobilinogen,Urine >12.0 mg/dL (<2.0); WBC,Urine 11 /hpf (0-5)
[2016-12-29] MEDS: LORazepam 2 MG/ML SYRINGE IV PRN ×3 (01:45→18:45)
[2016-12-29 07:43] LABS: Basophils % (A) 0 %; CH 34.3; CHCM 33.5; Eosinophils # (A) 0.1 k/uL (0-0.7); Eosinophils % (A) 1 %; HCT 32.8 % (39.0-53.0); HDW 1.99; HGB 11.4 gm/dL (13.0-17.5); Luc # (Auto) 0.42; Luc % (Auto) 3; Lymphocytes # (A) 0.6 k/uL (1.0-4.8); Lymphocytes % (A) 5 %; MCH 35.9 pg (25.0-35.0); MCHC 34.8 g/dL (31.0-37.0); MCV 103.1 fL (80.0-100.0); Macrocytosis Slight; Mean Platelet Volume 8.4; Monocytes % (A) 8 %; Neutrophils # (A) 10.4 k/uL (1.3-7.7); Neutrophils % (A) 83 %; RBC 3.18 m/uL (4.30-5.90); RDW 15.4 % (11.5-15.5); WBC 12.5 k/uL (3.8-10.6)
[2016-12-29 07:55] LABS: INR 2.6 (<1.1); Prothrombin Time 24.9 sec (9.0-12.0)
[2016-12-29 08:13] LABS: ALT 50 U/L (21-72); AST 140 U/L (17-59); Alkaline Phosphatase 193 U/L (38-126); Anion Gap 11 mmol/L; Blood Urea Nitrogen 13 mg/dL (9-20); Calcium 7.6 mg/dL (8.4-10.2); Carbon Dioxide 30 mmol/L (22-30); Chloride 95 mmol/L (98-107); Glucose 96 mg/dL (74-99); Non-African American GFR(MDRD) >60 (>60 ml/min/1.73 sqM); Sodium 136 mmol/L (137-145); Total Protein 6.9 g/dL (6.3-8.2)
[2016-12-29] MEDS: LACTULOSE 20 GM/30 ML CUP PO SCH ×3 (08:15→20:38)
[2016-12-29] MEDS: FUROSEMIDE 10 MG/ML 4 ML VIAL IV SCH ×2 (08:20→20:37)
[2016-12-29] MEDS: POTASSIUM CHLORIDE ER 20 MEQ TAB.ER PO SCH ×2 (08:30→20:37)
[2016-12-29] MEDS: PANTOPRAZOLE 40 MG TABLET PO SCH (08:30)
[2016-12-29] MEDS: SPIRONOLACTONE 25 MG TAB PO SCH ×3 (08:30→16:05)
[2016-12-29] MEDS: MULTIVITAMINS, THERA 1 EACH TAB PO SCH (08:30)
--- NOTE | 2016-12-29 08:43 | PN ---
DATE OF SERVICE: 12/27/2016 This 71-year-old gentleman admitted with abdominal distention and pain had paracentesis of about 6 liters ( ) colored fluid. The patient also has history of ETOH, cirrhosis of the liver and history of alcohol. Alcohol was more than 300 in the hospital. The patient also had GI bleed apparently at home. The patient has been closely monitored. The CT scan showed apple core lesion in the transverse colon as well. PAST MEDICAL HISTORY: Reviewed. REVIEW OF SYSTEMS: CARDIOVASCULAR: No angina. RESPIRATORY: As mentioned earlier. GI: As mentioned earlier. : No dysuria. NERVOUS SYSTEM: No numbness or weakness. Current medications are reviewed and doses reviewed. 1. Lasix 40 IV b.i.d. 2. Ativan. 3. Morphine sulfate. 4. Multivitamins. 5. Narcan. 6. Zofran. 7. Protonix. 8. Aldactone. 9. Vitamin B1. PHYSICAL EXAMINATION: The patient is alert and oriented x3. Pulse 76, blood pressure 120/72, respirations 14, temperature 98.3, pulse ox 100% on room air. HEENT: Conjunctivae normal. NECK: No jugular venous distention. CARDIOVASCULAR: S1, S2 muffled. RESPIRATORY: Breath sounds are diminished at the bases. No rhonchi, no crackles. ABDOMEN: Soft, mild diffuse discomfort. Distended less but still has ascites present. NERVOUS SYSTEM: No focal deficits. LABS: WBC 9.7, hemoglobin 10.8, INR 1.8, total bilirubin 16.4. ASSESSMENT: 1. Acute abdominal pain with acute ascites status post paracentesis of 6 liters of fluid. 2. Anemia normocytic with acute gastrointestinal bleed secondary from portal varices. 3. Coagulopathy secondary to cirrhosis of the liver. 4. Acute hepatitis possibly secondary to alcohol. 5. Apple core lesion in the transverse colon. 6. Multiple complex medical issues. 7. NO CODE, NO CPR, NO VENT. RECOMMENDATIONS AND DISCUSSION: In this 71-year-old gentleman who presented with multiple complex medical issues, will monitor the patient closely. Continue the current medications and continue symptomatic treatment. Otherwise at this time, details explained to the patient and family. At this time monitor the hemoglobin closely. Check ammonia also. Surgical input appreciated. Guarded prognosis. Further recommendations to follow. MTDD
[2016-12-29 08:46] LABS: Potassium 2.9 mmol/L (3.5-5.1); Total Bilirubin 26.9 mg/dL (0.2-1.3)
[2016-12-29] MEDS: THIAMINE 100 MG TAB PO SCH ×2 (13:31→16:05)
[2016-12-29] MEDS ORDERED: Potassium Replacement Protocol 1 EACH MISC MISCELLANE PRN (13:32)
[2016-12-29] MEDS: POTASSIUM CHLORIDE 10 MEQ, LIDOCAINE 2% INJ 10 MG in SODIUM CHLORIDE 0.9% 100 ML IVPB SCH ×2 (13:54→15:10)
[2016-12-29 19:45] LABS: Potassium 3.1 mmol/L (3.5-5.1)
[2016-12-29] MEDS ORDERED: Magnesium Replacement Protocol 1 EACH MISC MISCELLANE PRN (20:18)
[2016-12-29] MEDS: PHYTONADIONE ORAL 5 MG/5 ML ORAL.SYRG PO SCH (20:42)
[2016-12-29] MEDS: MAGNESIUM SULFATE-D5W PMX 1 GM in DEXTROSE/WATER 1 100ML.BAG IVPB SCH ×3 (20:54→22:30)
[2016-12-30 08:16] LABS: Basophils # (A) 0.1 k/uL (0-0.2); Basophils % (A) 0 %; CH 35.3; Eosinophils # (A) 0.1 k/uL (0-0.7); Eosinophils % (A) 1 %; HCT 35.3 % (39.0-53.0); HDW 2.03; HGB 12.5 gm/dL (13.0-17.5); Luc # (Auto) 0.49; Luc % (Auto) 3; Lymphocytes # (A) 0.8 k/uL (1.0-4.8); Lymphocytes % (A) 5 %; MCHC 35.5 g/dL (31.0-37.0); MCV 104.3 fL (80.0-100.0); Macrocytosis Moderate; Mean Platelet Volume 8.2; Monocytes # (A) 1.6 k/uL (0-1.0); Monocytes % (A) 10 %; Neutrophils # (A) 12.6 k/uL (1.3-7.7); Neutrophils % (A) 81 %; RBC 3.39 m/uL (4.30-5.90); RDW 15.9 % (11.5-15.5); WBC 15.6 k/uL (3.8-10.6); WBC (Perox) 15.62
[2016-12-30] MEDS: POTASSIUM CHLORIDE ER 20 MEQ TAB.ER PO SCH ×2 (08:16→20:19)
[2016-12-30] MEDS: FUROSEMIDE 10 MG/ML 4 ML VIAL IV SCH ×2 (08:16→20:19)
[2016-12-30] MEDS: MULTIVITAMINS, THERA 1 EACH TAB PO SCH (08:17)
[2016-12-30] MEDS: SPIRONOLACTONE 25 MG TAB PO SCH ×2 (08:17→16:25)
[2016-12-30] MEDS: PANTOPRAZOLE 40 MG TABLET PO SCH (08:17)
[2016-12-30 08:37] LABS: INR 2.3 (<1.1)
[2016-12-30] MEDS: LACTULOSE 20 GM/30 ML CUP PO SCH ×3 (10:02→22:59)
[2016-12-30] MEDS: PHYTONADIONE ORAL 5 MG/5 ML ORAL.SYRG PO SCH (10:04)
[2016-12-30 11:56] LABS: ALT 52 U/L (21-72); AST 154 U/L (17-59); Alkaline Phosphatase 206 U/L (38-126); Anion Gap 12 mmol/L; Blood Urea Nitrogen 17 mg/dL (9-20); Calcium 8.1 mg/dL (8.4-10.2); Carbon Dioxide 30 mmol/L (22-30); Chloride 94 mmol/L (98-107); Glucose 92 mg/dL (74-99); Non-African American GFR(MDRD) >60 (>60 ml/min/1.73 sqM); Potassium 3.2 mmol/L (3.5-5.1); Sodium 136 mmol/L (137-145); Total Protein 7.5 g/dL (6.3-8.2)
--- NOTE | 2016-12-30 11:58 | PN ---
DATE OF SERVICE: 12/28/2016 This 71-year-old gentleman admitted with cirrhosis of the liver has significant ascites, also has some change in mental status. The patient also has hyperammonemia also. The patient also had features of early delirium tremens also. No chest pain or palpitation. Multiple consultants are following the patient closely. PAST MEDICAL HISTORY: Reviewed. REVIEW OF SYSTEMS: CARDIOVASCULAR: No angina. RESPIRATORY: As mentioned earlier. GI: As mentioned earlier. : No dysuria. NERVOUS SYSTEM: As mentioned earlier, tremulous. Current medications are reviewed and include: 1. Lasix 40 mg IV b.i.d. 2. Ativan. 3. Morphine sulfate. 4. Narcan. 5. Zofran. 6. Protonix. 7. Aldactone. 8. Vitamin B1. PHYSICAL EXAM: The patient is alert and oriented x3. The pulse is 106, blood pressure 116/66, respirations 16, temperature 99.7, pulse ox 94% on room air. HEENT: Conjunctivae normal. NECK: No jugular venous distention. CARDIOVASCULAR: S1 and S2 muffled. RESPIRATORY: Breath sounds diminished at the base. Bilateral scattered rhonchi and crackles. ABDOMEN: Soft. Obese. Ascites present. LEGS: No edema. NERVOUS SYSTEM: No focal deficits. Labs are bilirubin is 19.4. Other labs are noted. ASSESSMENT: 1. Cirrhosis of the liver with dense ascites and abdominal distention. 2. Rule out apple core lesion and colonic malignancy. 3. Alcoholic cirrhosis of the liver. 4. Fever for evaluation. 5. Status post abdominal paracentesis. 6. History of EtOH and alcohol intoxication. 7. Early delirium tremens. 8. Possible alcoholic hepatitis. 9. Coagulopathy secondary to cirrhosis of the liver. 10. Portal hypertension. RECOMMENDATIONS AND DISCUSSION: Recommend to continue current medications, continue symptomatic treatment. I would also recommend empiric antibiotics at this time otherwise follow the culture. Continue the rest of the medications. Guarded prognosis. Further recommendations to follow. MTDD
[2016-12-30 12:23] LABS: Total Bilirubin 31.3 mg/dL (0.2-1.3)
[2016-12-30] MEDS: THIAMINE 100 MG TAB PO SCH ×2 (13:10→16:25)
--- NOTE | 2016-12-30 15:57 | P.DS ---
Providers Date of admission: 12/26/16 22:22 Attending physician: Jeff Castillo MD Consults: 12/26/16 22:24 Consult Physician Routine Consulting Provider: Rose Mary Powell Consult Reason/Comments: Possible abdominal mass, abd pain Do you want consulting provider notified?: Yes Consult Physician Routine Consulting Provider: Raymond Bailey Consult Reason/Comments: GI bleed, hepatic failure Do you want consulting provider notified?: Yes Primary care physician: Stated None Hospital Course: This 71-year-old gentleman with a past medical history significant medical problems including EtOH was admitted with abdominal distention and ascites secondary to cirrhosis possibly secondary to EtOH. The patient had an abdominal tap. The patient also had apple core lesion and possible colonic malignancy also. The patient also had a fever and multiple medical issues also. Treated conservatively improved. The patient is still jaundiced but recommended the patient to follow patient closely with the primary physician and brush painter. Possibility of alcoholic hepatitis also considered I have discussed the case at length with Dr. Randolph the brush painter. The patient be given short course of steroids and the recommendation to be given follow-up in the outpatient setting. Currently on exam vitals are stable. Cardiovascular system S1-S2 normal. Respiratory system versus a diminish the bases. Abdomen soft ascites present. conjunctival icterus present. The patient will be discharged in stable condition with a guarded prognosis. Final diagnoses. 1. Cirrhosis of liver with dense ascites and abdominal distention secondary to EtOH. 2. Rule out the apple core lesion or colonic malignancy 3. Alcoholic cirrhosis of liver 4. Fever improved 5. Status post abdominal paracentesis 6. History of alcohol intoxication 7. Early delirium tremens 8. Possible chronic hepatitis 9. Chronic cirrhosis of liver 10. Portal hypertension Recommendations Please see the orders for further details the prognosis S patient is fairly guarded for the patient and patient to follow-up with the primary physician and brush painter closely. Patient Condition at Discharge: Poor Plan - Discharge Summary New Discharge Prescriptions: New Folic Acid 1 mg PO DAILY #30 tablet Lactulose [Cephulac] 30 gm PO TID #200 ml LORazepam [Ativan] 1 mg PO TID PRN #40 tab PRN Reason: Anxiety Pantoprazole [Protonix] 40 mg PO BID #60 tab Phytonadione Oral [Vitamin K Oral] 10 mg PO DAILY #30 syr Potassium Chloride ER [K-Dur 20] 40 meq PO BID #60 tab predniSONE 40 mg PO DAILY #30 tab Spironolactone [Aldactone] 50 mg PO BID@0900,1600 #30 tab Thiamine [Vitamin B-1] 100 mg PO DAILY #30 tab Continue Multivitamins, Thera [Multivitamin (formulary)] 1 tab PO DAILY Discontinued Potassium Chloride ER [K-Dur 20] 20 meq PO BID #120 tab.er.prt Aspirin 325 mg PO DAILY Discharge Medication List Multivitamins, Thera [Multivitamin (formulary)] 1 tab PO DAILY 12/26/16 [History ] Folic Acid 1 mg PO DAILY #30 tablet 12/30/16 [Rx] LORazepam [Ativan] 1 mg PO TID PRN #40 tab 12/30/16 [Rx] Lactulose [Cephulac] 30 gm PO TID #200 ml 12/30/16 [Rx] Pantoprazole [Protonix] 40 mg PO BID #60 tab 12/30/16 [Rx] Phytonadione Oral [Vitamin K Oral] 10 mg PO DAILY #30 syr 12/30/16 [Rx] Potassium Chloride ER [K-Dur 20] 40 meq PO BID #60 tab 12/30/16 [Rx] Spironolactone [Aldactone] 50 mg PO BID@0900,1600 #30 tab 12/30/16 [Rx] Thiamine [Vitamin B-1] 100 mg PO DAILY #30 tab 12/30/16 [Rx] predniSONE 40 mg PO DAILY #30 tab 12/30/16 [Rx] Follow up Appointment(s)/Referral(s): Raymond Bailey MD [STAFF PHYSICIAN] - 01/06/17 4:30 pm (for follow up and possible colonoscopy) None,Stated [Primary Care Provider] - 1-2 days Ambulatory/Diagnostic Orders: Complete Blood Count w/diff [LAB.AMB] Location: Determined By Patient Activity/Diet/Wound Care/Special Instructions: [facility] home care #[phone] diet cardiac act limited til f/u no etoh Discharge Disposition: HOME WITH HOME HEALTH SERVICES
[2016-12-30] MEDS: predniSONE 20 MG TAB PO SCH (16:22)
--- NOTE | 2016-12-30 22:51 | PN ---
DATE OF SERVICE: 12/29/2016 This 71-year-old gentleman who was admitted with acute abdominal pain with acute ascites and paracentesis also had change in mental status and metabolic encephalopathy. The patient is severely jaundiced. Bilirubin has improved; 26 today. No chest pain. No palpitations. No fever. Past medical history reviewed. Review of systems could not be taken; the patient is confused. Current medications are reviewed and include: 1. Rocephin 1 gram IV daily. 2. Lasix 40 mg IV b.i.d. 3. Ativan. 4. KCl. 5. Narcan. 6. Zofran. 7. Protonix. 8. Aldactone. Doses are reviewed. On exam, alert and oriented x1. Pulse 107, blood pressure 114/60, respiration 20 , temperature 97 degrees, pulse ox 94% on room air. HEENT: Conjunctivae icteric. Oral mucosa is icteric. NECK: No jugular venous distention. No carotid bruit. No lymph node enlargement. CARDIOVASCULAR: S1, S2 muffled. RESPIRATORY: Breath sounds diminished at the bases. A few scattered rhonchi. ABDOMEN: Soft. Diffuse distention. Ascites present. LEGS: No edema. No swelling. NERVOUS SYSTEM: No focal deficit. LABS: WBC 12.5, hemoglobin 11.4. INR is 2.6. Potassium 2.9. Total bilirubin is 26.9. ASSESSMENT: 1. Acute abdominal pain with acute ascites, status post paracentesis with 6 liters of fluid. 2. Hepatic encephalopathy. 3. Severe hypokalemia. 4. Anemia, normocytic; acute gastrointestinal bleed from portal varices. 5. Coagulopathy secondary to cirrhosis of the liver. 6. Acute hepatitis secondary to alcoholism. 7. Apple core lesion in the transverse colon. 8. Multiple complex medical issues. 9. NO CODE, NO CPR, NO VENT. RECOMMENDATIONS AND DISCUSSION: I recommend to continue current medications, continue symptomatic treatment. I will check magnesium. Otherwise, continue to monitor. Potassium supplementation. Aldactone has been initiated. Lactulose. Guarded prognosis. Further recommendations to follow. MTDD
[2016-12-31 07:33] VITALS: BP 123/68; PULSE 76; RESP 19; TEMP 96.9
[2016-12-31] MEDS: FUROSEMIDE 10 MG/ML 4 ML VIAL IV SCH (07:55)
[2016-12-31] MEDS: LACTULOSE 20 GM/30 ML CUP PO SCH (07:55)
[2016-12-31] MEDS: predniSONE 20 MG TAB PO SCH (07:56)
[2016-12-31] MEDS: POTASSIUM CHLORIDE ER 20 MEQ TAB.ER PO SCH (07:56)
[2016-12-31] MEDS: SPIRONOLACTONE 25 MG TAB PO SCH (07:56)
[2016-12-31] MEDS: MULTIVITAMINS, THERA 1 EACH TAB PO SCH (07:56)
[2016-12-31] MEDS: PANTOPRAZOLE 40 MG TABLET PO SCH (08:00)
[2016-12-31 09:01] LABS: ALT 47 U/L (21-72); AST 122 U/L (17-59); Alkaline Phosphatase 188 U/L (38-126); Anion Gap 11 mmol/L; Blood Urea Nitrogen 22 mg/dL (9-20); Calcium 7.8 mg/dL (8.4-10.2); Carbon Dioxide 29 mmol/L (22-30); Chloride 96 mmol/L (98-107); Glucose 142 mg/dL (74-99); Non-African American GFR(MDRD) 55 (>60 ml/min/1.73 sqM); Potassium 3.6 mmol/L (3.5-5.1); Sodium 136 mmol/L (137-145); Total Protein 7.2 g/dL (6.3-8.2)
[2016-12-31 10:57] LABS: INR 2.1 (<1.1); Prothrombin Time 20.2 sec (9.0-12.0)
[2016-12-31] MEDS: PHYTONADIONE ORAL 5 MG/5 ML ORAL.SYRG PO SCH (11:23)
[2016-12-31] MEDS: THIAMINE 100 MG TAB PO SCH (12:47)
--- NOTE | 2016-12-31 15:35 | PN ---
This 71 year old gentleman admitted with acute abdominal pain with acute hepatitis also had cirrhosis of the liver. No chest pain. No palpitations. No fever. On exam, alert and oriented times three. Pulse is 97. Blood pressure 103/66. Respirations 18. Temperature 97.7. Pulse ox 97% on room air. HEENT: Conjunctivae icteric. NECK: No JVD. CARDIOVASCULAR: S1, S2 muffled. Breath sounds diminished at the bases. Abdomen soft. Ascites present. Legs minimal edema. Nervous system: No focal deficits. Labs are WBC 15.6, hemoglobin 12.5. ASSESSMENT: 1. Acute abdominal pain with ascites, status post paracentesis 6 L fluids. 2. Hepatic encephalopathy. 3. Anemia. 4. Hypokalemia. 5. Anemia, normocytic. 6. Coagulopathy, secondary to cirrhosis of the liver. 7. History of ETOH. RECOMMENDATIONS AND DISCUSSION: Recommend to continue current medications. Continue with symptomatic treatment. Otherwise, monitor closely. Continue the current antibiotics. Further recommendations to follow. MTDD
== END 2016-12-31 15:08 | disposition home health service (06) | DRG 432 ==
LOC: EC 19:31 → 6ICU 22:22 → 4MS4W 12-27 11:38
PROVIDERS: ADMIT Internal Medicine; ATTEND Internal Medicine
PROC: 0W9G3ZX Drainage of Peritoneal Cavity, Percutaneous Approach, Diagnostic (ICD-10-PCS; principal; 2016-12-27)
DX: K70.31 Alcoholic cirrhosis of liver with ascites (principal); I85.11 Secondary esophageal varices with bleeding; F10.221 Alcohol dependence with intoxication delirium; D68.4 Acquired coagulation factor deficiency; E44.0 Moderate protein-calorie malnutrition; K76.6 Portal hypertension; D62 Acute posthemorrhagic anemia; K70.40 Alcoholic hepatic failure without coma; D69.59 Other secondary thrombocytopenia; K70.11 Alcoholic hepatitis with ascites; E87.6 Hypokalemia; F41.9 Anxiety disorder, unspecified; R50.9 Fever, unspecified; D53.9 Nutritional anemia, unspecified; K63.9 Disease of intestine, unspecified; Z79.82 Long term (current) use of aspirin; Z85.828 Personal history of other malignant neoplasm of skin; Z87.891 Personal history of nicotine dependence; Z66 Do not resuscitate; Z82.49 Family history of ischemic heart disease and other diseases of the circulatory system; Y90.8 Blood alcohol level of 240 mg/100 ml or more
CPT/HCPCS: 36415; 49083; 71010; 80051; 80053; 81001; 81003; 82140; 82945; 83615; 83735; 84157; 85025; 85610; 87040; 87070; 87075; 87086; 87205; 88108; 88305; 89050; 96365; 96366; 96375; 96376; 99285